=== PATIENT | male | born 1975 | race Caucasian/White ===

== ENCOUNTER 2021-09-15 19:41 | Emergency (ER) | payer SELFPAY ==
[2021-09-15 19:42] VITALS: BP 143/99; PULSE 64; RESP 18; TEMP 36.7; O2SAT 99; BMI 22.3
--- NOTE | 2021-09-15 23:15 | EDS_ITS ---
HPI History of Present Illness Chief Complaint: Dental Narrative Narrative: 44-year-old male with poor dentition and a cracked tooth which has been a problem for weeks. He states that he has been on antibiotics but has not been able to get a dental follow-up because he does not have the money. He states he is awaiting his insurance and also awaiting his tax refund to pay for his dental repair. No difficulty swallowing or breathing. No fever chills. PFSH PFSH Medical History no medical history Home Medications amoxicillin-pot clavulanate 1 tab PO BID #20 tab 09/15/21 [Rx Last Taken Unknown] Allergy/AdvReac Type Severity Reaction Status Date / Time No Known Allergies Allergy Verified 09/15/21 19:44 Surgical History no surgical history Social History Smoking Status: Current every day smoker tobacco type: cigarettes ROS ROS ED Constitutional Constitutional ED: Denies chills or fever(s) Eyes Eyes: Denies blurry vision or change in vision ENT ENT ED: Denies rhinorrhea or sore throat Cardiovascular Cardiovascular: Denies chest pain or palpitations Respiratory/Chest Respiratory/Chest: Denies cough or dyspnea Gastrointestinal Gastrointestinal: Denies abdominal pain or nausea Genitourinary Genitourinary ED: Denies dysuria or hematuria Musculoskeletal Musculoskeletal: Denies arthralgias or myalgias Integumentary Denies rash Neurologic Neurologic: Denies headache(s) or weakness EXAM Physical Exam Const Vital Signs: 09/15/21 19:42 Temperature 98.1 F Temperature Source Temporal Pulse Rate 64 Respiratory Rate 18 Blood Pressure 143/99 H Blood Pressure Mean 113 Pulse Ox 99 Oxygen Delivery Method Room Air Positive well nourished General Appearance ED: NAD HEENT HEENT Narrative: Partially edentulous. Multiple dental caries. Dental percussion tenderness over tooth #27. This is cracked and decayed. No sublingual edema. No tongue swelling. Buccal mucosa normal. Oral airway patent without stridor. No submandibular fullness. Negative for trauma or tenderness Eyes PERRL Neck no lymphadenopathy and supple General: Negative for anterior neck swelling or submandibular swelling Resp normal respiratory effort and clear to auscultation bilaterally Cardio regular rate and regular rhythm Neuro oriented x3 and CN's II-XII intact bilaterally Sensorium / Orientation: alert Psych mental status grossly normal MDM MDM MDM Narrative Medical decision making narrative: Patient presenting with dental pain. He states he has Tylenol and Naprosyn at home. He requests narcotic pain medication and I counseled him that this is becoming a chronic issue and he is not following up and I do not feel comfortable prescribing narcotics for this. He needs to follow-up with a dentist. I will give him Augmentin. Patient is a lso driving tonight. Patient is given dental referral sheet and he is counseled on return cautions. Impression: 1. Dental caries 2. Dental infection Discharge Plan Triage Chief Complaint: Dental ED Provider: Laron Esposito Dx/Rx/DC Orders Instructions: ED Dental Pain Prescriptions: New amoxicillin-pot clavulanate 875-125 mg tablet 1 tab PO BID Qty: 20 RF: 0 Primary Care Provider: Care Physician,No Primary Referrals: Care Physician,No Primary [Primary Care Provider] - Disposition Disposition: Home, Self Care Discharge Date/Time: 09/15/21 21:46
== END 2021-09-15 21:46 | disposition home or self-care (01) ==
PROVIDERS: Emergency Provider Student in an Organized Health Care Education/Training Program; Visit Provider Student in an Organized Health Care Education/Training Program
DX: K04.7 Periapical abscess without sinus (principal); K02.9 Dental caries, unspecified; F17.210 Nicotine dependence, cigarettes, uncomplicated
CPT/HCPCS: 99282

== ENCOUNTER 2025-03-22 23:23 | Emergency (ER) | payer MEDICAID, SELFPAY ==
[2025-03-22 23:27] VITALS: BP 140/102; PULSE 113; RESP 18; TEMP 36.6; O2SAT 97; BMI 20.2
--- OUTSIDE RECORDS SUMMARY | 2025-03-23 00:13 | XMS RPT_ITS | CCD ---
Author Organization [facility] Care Team Providers Care Hospice Bereavement Coordinator Name Role Phone PHYSICIAN, NONE Primary Care Physician Unavailab le Medications Current Medications Medication Drug Class(es) Dates Sig (Normalized) Sig (Original) acetaminophen 325 mg / oxyCODONE hydrochloride 5 mg oral tablet (1 source) Opioid Agonist Start: 08-26-2021 End: 08-28-2021 take 1 tablet by mouth every four hours as needed for pain Percocet 5 mg-325 mg oral tablet Dose = 1 tab(s), Oral, q4h, PRN for pain, X 2 day(s), # 12 tab(s), 0 Refill(s), Tooth decayed Dental infection, 77 Start Date: 08/26/21 Stop Date: 08/28/21 Status: Ordered amoxicillin 500 mg oral capsule (2 sources) Penicillin-class Antibacterial Start: 09-14-2021 End: 09-24-2021 amoxicillin 500 mg oral capsule Dose : 500 mg = 1 cap(s), PO, TID, X 10 day(s), # 30 cap(s), 0 Refill(s), 09/24/21 12:24:00 EDT, Dental caries Start Date: 09/14/21 Stop Date: 09/24/21 Status: Ordered amoxicillin 875 mg / clavulanate 125 mg oral tablet (2 sources) Penicillin-class Antibacterial Start: 09-15-2021 take 1 tablet by mouth twice daily Amoxicillin-Pot Clavulanate Active 1 TABLET PO TWICE A DAY September 15, 2021 9:39pm Start: 08-26-2021 End: 09-05-2021 take 1 tablet by mouth every twelve hours amoxicillin-clavulanate 875 mg-125 mg or al tablet 1 tab(s), Oral, q12h, X 10 day(s), # 20 tab(s), 0 Refill(s), 09/05/21 17:34:00 EST, Tooth decayed Dental infection, 77 Start Date: 08/26/21 Stop Date: 09/05/21 Status: Ordered Problems Problem Classification Problem Date Documented Da te Episodic/Chronic Disorders of teeth and jaw (4 sources) Dental caries; Translations: [Dental caries, unspecified] Onset: 08-26-2021 Episodic Results Test Name Value Interpretation Reference Range Facil ity Emergency Department Summary on 09-16-2021 Emergency Department Summary [facility] Medical Records Department [address] [place] [address] Emergency Department Summary 09/15/21 MR#: [id number] Acct: [id number] Name: DEREK SCHREIBER Rep #: [id number] : 1975 45 From: Laron Esposito DO PCP: Care Physician,No Primary Status:DEP ER Location: ED HPI History of Present Illness Chief Complaint: Dental Narrative Narrative: 44-year-old male with poor dentition and a cracked tooth which has been a problem for weeks. He states that he has been on antibiotics but has not been able to get a dental follow-up because he does not have the money. He states he is awaiting his insurance and also awaiting his tax refund to pay for his dental repair. No difficulty swallowing or breathing. No fever chills. PFSH PFSH Medical History no medical history Home Medications amoxicillin-pot clavulanate 1 tab PO BID #20 tab 09/15/21 [Rx Last Taken Unknown] Allergy/AdvReac Type Severity Reaction Status Date / Time No Known Allergies Allergy Verified 09/15/21 19:44 Surgical History no surgical history Social History Smoking Status: Current every day smoker tobacco type: cigarettes ROS ROS ED Constitutional Constitutional ED: Denies chills or fever(s) Eyes Eyes: Denies blurry vision or change in vision ENT ENT ED: Denies rhinorrhea or sore throat Cardiovascular Cardiovascular: Denies chest pain or palpitations Respiratory/Chest Respiratory/Chest: Denies cough or dyspnea Gastrointestinal Gastrointestinal: Denies abdominal pain or nausea Genitourinary Genitourinary ED: Denies dysuria or hematuria Musculoskeletal Musculoskeletal: Denies arthralgias or myalgias Integumentary Denies rash Neurologic Neurologic: Denies headache(s) or weakness EXAM Physical Exam Const Vital Signs: 09/15/21 19:42 Temperature 98.1 F Temperature Source Temporal Pulse Rate 64 Respiratory Rate 18 Blood Pressure 143/99 H Blood Pressure Mean 113 Pulse Ox 99 Oxygen Delivery Method Room Air Positive well nourished General Appearance ED: NAD HEHARINDER HEENT Narrative: Partially edentulous. Multiple dental caries. Dental percussion tenderness over tooth #27. This is cracked and decayed. No sublingual edema. No tongue swelling. Buccal mucosa normal. Oral airway patent without stridor. No submandibular fullness. Negative for trauma or tenderness Eyes PERRL Neck no lymphadenopathy and supple General: Negative for anterior neck swelling or submandibular swelling Resp normal respiratory effort and clear to auscultation bilaterally Cardio regular rate and regular rhythm Neuro oriented x3 and CN's II-XII intact bilaterally Sensorium / Orientation: alert Psych mental status grossly normal MDM MDM MDM Narrative Medical decision making narrative: Patient presenting with dental pain. He states he has Tylenol and Naprosyn at home. He requests narcotic pain medication and I counseled him that this is becoming a chronic issue and he is not following up and I do not feel comfortable prescribing narcotics for this. He needs to follow-up with a dentist. I will give him Augmentin. Patient is a lso driving tonight. Patient is given dental referral sheet and he is counseled on return cautions. Impression: 1. Dental caries 2. Dental infection Discharge Plan Triage Chief Complaint: Dental ED Provider: Laron Esposito Dx/Rx/DC Orders Instructions: ED Dental Pain Prescriptions: New amoxicillin-pot clavulanate 875-125 mg tablet 1 tab PO BID Qty: 20 RF: 0 Primary Care Provider: Care Physician,No Primary Referrals: Care Physician,No Primary [Primary Care Provider] - Disposition Disposition: Home, Self Care Discharge Date/Time: 09/15/21 21:46 What to do if you have Problems For any increased pain, shortness of breath, bleeding, nausea or vomiting, chest pain, or any unexpected problems, contact your Primary Care Provider. Call [facility] ([phone]) or report to the closest Emergency Room. Call 911 if necessary. 09/15/21 3188 Cosigner Signature (if applicable): CC: No Primary Care Physician Signed Normal [facility] Vital Signs Date Time Vital Sign Value Performing Clinician Facility 09-15-2021 19:42-0400 Body height 180.34 cm [facility] Work Phone: 09-15-2021 19:42-0400 Body mass index (BMI) [Ratio] 22.3 kg/m2 [facility] Work Phone: 09-15-2021 19:42-0400 Body temperature 98.1 [degF] [facility] Work Phone: 09-15-2021 19:42-0400 Body weight 72.57 kg [facility] Work Phone: 09-15-2021 19:42-0400 Diastolic blood pressure 99 mm[Hg] [facility] Work Phone: 09-15-2021 19:42-0400 Heart rate 64 /min [facility] Work Phone: 09-15-2021 19:42-0400 Respiratory rate 18 /min [facility] Work Phone: 09-15-2021 19:42-0400 SaO2% (BldA) [Mass fraction] 99 % [facility] Work Phone: 09-15-2021 19:42-0400 Systolic blood pressure 143 mm[Hg] [facility] Work Phone: 09-15-2021 10:51-0400 Body height 180.3 cm LOUISA CALLWOAY MD [facility] 09-15-2021 10:51-0400 Body temperature 98.24 [degF] LOUISA CALLOWAY MD [facility] 09-15-2021 10:51-0400 Body weight 72.7 kg LOUISA CALLOWAY MD [facility] 09-15-2021 10:51-0400 Diastolic blood pressure 82 mm[Hg] LOUISA CALLOWAY MD [facility] 09-15-2021 10:51-0400 Heart rate 79 /min LOUISA CALLOWAY MD [facility] 09-15-2021 10:51-0400 Respiratory rate 24 /min LOUISA CALLOWAY MD [facility] 09-15-2021 10:51-0400 Systolic blood pressure 135 mm[Hg] LOUISA CALLOWAY MD [facility] 09-14-2021 11:47-0400 Body temperature 97.52 [degF] DR QUINTON ALANIS MD [facility] 09-14-2021 11:47-0400 Diastolic blood pressure 96 mm[Hg] DR QUINTON ALANIS MD [facility] 09-14-2021 11:47-0400 Heart rate 72 /min DR QUINTON ALANIS MD [facility] 09-14-2021 11:47-0400 Respiratory rate 16 /min DR QUINTON ALANIS MD [facility] 09-14-2021 11:47-0400 Systolic blood pressure 141 mm[Hg] DR QUINTON ALANIS MD [facility] 08-26-2021 17:22-0500 Body height 180.3 cm CAMMIE SAL DO [facility] 08-26-2021 17:22-0500 Body temperature 97.34 [degF] CAMMIE SAL DO [facility] 08-26-2021 17:22-0500 Body weight 75 kg CAMMIE SAL DO [facility] 08-26-2021 17:22-0500 Diastolic blood pressure 98 mm[Hg] CAMMIE SAL DO [facility] 08-26-2021 17:22-0500 Heart rate 75 /min CAMMIE SAL DO [facility] 08-26-2021 17:22-0500 Respiratory rate 16 /min CAMMIE SAL DO [facility] 08-26-2021 17:22-0500 Systolic blood pressure 158 mm[Hg] CAMMIE SAL DO [facility] Encounters Encounter Date Encounter Type Care Provider Facility Start: 09-15-2021 End: 09-15-2021 Emergency department patient visit [facility] Start: 09-15-2021 End: 09-15-2021 Emergency department patient visit LOUISA CALLOWAY MD [facility] Start: 09-14-2021 End: 09-14-2021 Emergency department patient visit DR QUINTON ALANIS MD [facility] Start: 08-26-2021 End: 08-26-2021 Emergency department patient visit CAMMIE SAL DO [facility] Plan of Treatment Date Care Activity Detail Author Patient Education ED Dental Pain [facility] Work Phone: Patient referral [facility] Work Phone: Payers Date Payer Category Payer Policy ID Self-pay SELF PAY INSURANCE [id number] Social History Date Type Detail Facility [facility] Start: 1975 Sex Assigned At Male [facility] Tobacco Nicotine Use: denies. [facility] Start: 09-15-2021 Tobacco smoking stat [facility] Unknown if ever smoked [facility] Work Phone: Hospital Discharge instructions 09-15-2021 Note Date & Type Note Facility 09-15-2021 Hospital Discharg e instructions Patient Education 09/15/2021 10:55:33 Dental Pain Dental Pain A crack or cavity in a tooth can cause tooth pain. This is because the crack or cavity exposes the sensitive inner area of the tooth. An infection in the gum or the root of the tooth can cause pain and swelling. The pain is often made worse when you drink hot or cold beverages. It can also be worse when you bite on hard foods. Pain may spread from the tooth to your ear or the area of the jaw on the same side. Home care Follow these tips when caring for yourself at home: Don't have hot and cold foods and drinks. Your tooth may be sensitive to changes in temperature. Use toothpaste made for sensitive teeth. Rising Fawn gently up and down instead of sideways. Brushing sideways can wear away root surfaces if they are exposed. If your tooth is chipped or cracked, or if there is a large open cavity, put oil of cloves directly on the tooth to relieve pain. You can buy oil of cloves at drugstores. Some pharmacies carry an ropy-qwc-yepcpyp toothache kit. This contains a paste that you can put on the exposed tooth to make it less sensitive. Put a cold pack on your jaw over the sore area to help reduce pain. You may use zpbb-enn-kdhzuue medicine to ease pain, unless your doctor prescribed another medicine. If you have chronic liver or kidney disease, talk with your healthcare provider before using acetaminophen or ibuprofen. Also talk with your provider if you ve had a stomach ulcer or GI bleeding. If you have signs of an infection, you will be given an antibiotic. Take it as directed. Follow-up care Follow up with your dentist, or as advised. Your pain may go away with the treatment given today. But only a dentist can fully look at and treat the cause of your pain. This will keep the pain from coming back. Call 911 Call 911 if any of these occur: Unusual drowsiness Headache or stiff neck Weakness or fainting Difficulty swallowing or breathing When to seek medical advice Call your health care provider right away if any of these occur: Your face becomes swollen or red Pain gets worse or spreads to your neck Fever of 100.4 F (38.0 C) or higher, or as directed by your healthcare provider Pus drains from the tooth [id number] [employer] [address] [place] [address]. All rights reserved. This information is not intended as a substitute for professional medical care. Always follow your healthcare professional's instructions. Follow Up Care 09/15/2021 10:43:31 With:Follow up with primary care provider Address:Unknown When:2-4 days [facility] Hospital Discharge instructions 09-14-2021 Note Date & Type Note Facility 09-14-2021 Hospital Discharg e instructions Follow Up Care 09/14/2021 11:39:01 With:Dental List Address: When:2-4 days [facility] Hospital Discharge instructions 08-26-2021 Note Date & Type Note Facility 08-26-2021 Hospital Discharg e instructions Patient Education 08/26/2021 17:35:07 Treating Sensitive Teeth Treating Sensitive Teeth See your dentist if you have sensitive, painful teeth. Your dentist will examine your teeth to determine the cause of your tooth sensitivity. Then he or she will recommend a proper treatment plan. Your dental exam Your dentist will check your teeth for sensitivity to cold, air, or heat. Let him or her know if you have foods or drinks that are high in acid, such as citrus fruits or sports drinks. Also tell your dentist about any stomach problems you may have that bring acid into your mouth. Your dentist will also look inside your mouth to check for decayed teeth, or teeth worn by improper brushing. If needed, X-rays will be taken. You may also be checked for signs of teeth grinding, or clenching. You may start out with a special oral hygiene program for home care. But your dentist may also suggest professional treatment. Home care Your dentist may suggest that you follow an oral hygiene program at home. Use a toothbrush with soft bristles. If any roots are exposed, you may be asked to use a special toothpaste. This toothpaste makes teeth less sensitive. Your dentist may also suggest that you try a fluoride rinse or gel, or a desensitizing toothpaste. Cleaning all parts of your teeth and mouth helps prevent tooth sensitivity and decay. Professional treatment Depending on how sensitive your teeth are, your dentist may suggest professional treatment. He or she may: Apply special chemicals to the sensitive areas. Use a coating of resin to seal the dentin. Fill cavities or deep grooves in any exposed root. Apply a fluoride varnish to the root surface. Know that your teeth can become sensitive again. Be sure to follow your home-care treatment plan. Also schedule regular dental exams. By working with your dentist, you can help keep your teeth pain-free. [id number] [employer] [address] [place] [address], [place] [address]. All rights reserved. This information is not intended as a substitute for professional medical care. Always follow your healthcare professional's instructions. 08/26/2021 17:35:01 Amoxicillin; Clavulanic Acid extended-release tablets Amoxicillin; Clavulanic Acid extended-release tablets What is this medicine? AMOXICILLIN; CLAVULANIC ACID (a mox i SILL in; GRETCHEN guajardo marielle ic id) is a penicillin antibiotic. It is used to treat certain kinds of bacterial infections. It will not work for colds, flu, or other viral infections. How should I use this medicine? Take this medicine by mouth with a full glass of water. Follow the directions on the prescription label. Take at the start of a meal. Do not crush or chew. You may cut this medicine in half at the score line for easier swallowing. Take your medicine at regular intervals. Do not take your medicine more often than directed. Take all of your medicine as directed even if you think you are better. Do not skip doses or stop your medicine early. Contact your licensed clinical psychologist or health residential care officer regarding the use of this medicine in children. This medicine has been used in children as young as 16 years of age. What side effects may I notice from receiving this medicine? Side effects that you should report to your doctor or health residential care officer as soon as possible: allergic reactions like skin rash, itching or hives, swelling of the face, lips, or tongue breathing problems dark urine fever or chills, sore throat redness, blistering, peeling or loosening of the skin, including inside the mouth seizures trouble passing urine or change in the amount of urine unusual bleeding, bruising unusually weak or tired white patches or sores in the mouth or throat Side effects that usually do not require medical attention (report to your doctor or health residential care officer if they continue or are bothersome): diarrhea dizziness headache nausea, vomiting stomach upset vaginal or anal irritation What may interact with this medicine? allopurinol anticoagulants control pills methotrexate probenecid What if I miss a dose? If you miss a dose, take it as soon as you can. If it is almost time for your next dose, take only that dose. Do not take double or extra doses. Where should I keep my medicine? Keep out of the reach of children. Store at room temperature below 25 degrees C (77 degrees F). Keep container tightly closed. Throw away any unused medicine after the expiration date. What should I tell my health care provider before I take this medicine? They need to know if you have any of these conditions: bowel disease, like colitis kidney disease liver disease mononucleosis an unusual or allergic reaction to amoxicillin, penicillin, cephalosporin, other antibiotics, clavulanic acid, other medicines, foods, dyes, or preservatives or trying to get breast-feeding What should I watch for while using this medicine? Tell your doctor or health residential care officer if your symptoms do not improve. Do not treat diarrhea with over the counter products. Contact your doctor if you have diarrhea that lasts more than 2 days or if it is severe and watery. If you have diabetes, you may get a false-positive result for sugar in your urine. Check with your doctor or health residential care officer. control pills may not work properly while you are taking this medicine. Talk to your doctor about using an extra method of control. NOTE:This sheet is a summary. It may not cover all possible information. If you have questions about this medicine, talk to your doctor, pharmacist, or health care provider. Copyright 2019 [employer] 08/26/2021 17:34:42 Dental Pain Dental Pain A crack or cavity in a tooth can cause tooth pain. This is because the crack or cavity exposes the sensitive inner area of the tooth. An infection in the gum or the root of the tooth can cause pain and swelling. The pain is often made worse when you drink hot or cold beverages. It can also be worse when you bite on hard foods. Pain may spread from the tooth to your ear or the area of the jaw on the same side. Home care Follow these tips when caring for yourself at home: Don't have hot and cold foods and drinks. Your tooth may be sensitive to changes in temperature. Use toothpaste made for sensitive teeth. Rising Fawn gently up and down instead of sideways. Brushing sideways can wear away root surfaces if they are exposed. If your tooth is chipped or cracked, or if there is a large open cavity, put oil of cloves directly on the tooth to relieve pain. You can buy oil of cloves at drugstores. Some pharmacies carry an mxdk-qcn-wmhissm toothache kit. This contains a paste that you can put on the exposed tooth to make it less sensitive. Put a cold pack on your jaw over the sore area to help reduce pain. You may use skio-suo-icbzweh medicine to ease pain, unless your doctor prescribed another medicine. If you have chronic liver or kidney disease, talk with your healthcare provider before using acetaminophen or ibuprofen. Also talk with your provider if you ve had a stomach ulcer or GI bleeding. If you have signs of an infection, you will be given an antibiotic. Take it as directed. Follow-up care Follow up with your dentist, or as advised. Your pain may go away with the treatment given today. But only a dentist can fully look at and treat the cause of your pain. This will keep the pain from coming back. Call 911 Call 911 if any of these occur: Unusual drowsiness Headache or stiff neck Weakness or fainting Difficulty swallowing or breathing When to seek medical advice Call your health care provider right away if any of these occur: Your face becomes swollen or red Pain gets worse or spreads to your neck Fever of 100.4 F (38.0 C) or higher, or as directed by your healthcare provider Pus drains from the tooth [id number] [employer] [address] [place] [address]. All rights reserved. This information is not intended as a substitute for professional medical care. Always follow your healthcare professional's instructions. 08/26/2021 17:34:40 Dental Cavity Dental Cavity A dental cavity is a pit or crater in the surface of a tooth. This exposes the sensitive inner layer of the tooth and causes pain. If the cavity isn t treated, it will get bigger. It may enter the pulp and cause an infection or abscess in the bone at the root end (apex) of the tooth. An infection in the tooth is a much more serious problem than a cavity. If the tooth gets infected, you will need a root canal or the entire tooth taken out (extraction). The pain in your tooth may be made worse by eating sweets or drinking hot or cold beverages. It may spread from the tooth to your ear or the area of your jaw on the same side. Home care Follow these tips when caring for yourself at home: Don't have sweets and hot and cold foods and drinks. Your tooth may be sensitive to changes in temperature. If your tooth is chipped or cracked, or if there is a large open cavity, put oil of cloves directly on the tooth to relieve pain. You can buy oil of cloves at drugstores. Some pharmacies carry an rlwy-wni-qbxaskx toothache kit. This contains a paste that you can put on the exposed tooth to make it less sensitive. Put a cold pack on your jaw over the sore area to help reduce pain. You may use posg-ekh-kopefgn medicine to ease pain, unless another medicine was prescribed. If you have chronic liver or kidney disease, talk with your healthcare provider before using acetaminophen or ibuprofen. Also talk with your provider if you ve had a stomach ulcer or GI bleeding. If you have signs of an infection, you will be given an antibiotic. Take it as directed. Follow-up care Follow up with your dentist, or as advised. Your pain may go away with the treatment given today. But only a dentist can fully look at and treat this problem to prevent further tooth damage. Call 911 Call 911 if any of these occur: Difficulty swallowing or breathing Weakness or fainting Unusual drowsiness Headache or stiff neck When to seek medical advice Call your healthcare provider right away if any of these occur: Redness or swelling of the face Pain gets worse or spreads to your neck Fever of 100.4 F (38 C) or higher, or as directed by your healthcare provider Pus drains from the tooth or gum [phone] [employer] [address] [place] [address]. All rights reserved. This information is not intended as a substitute for professional medical care. Always follow your healthcare professional's instructions. Follow Up Care 08/26/2021 17:19:17 With:Call Physician Referral Address:Unknown When:2-4 days With:Dental Referral List Address: When:2-4 days [facility] Evaluation + Plan note Note Date & Type Note Facility Evaluation + Plan note No data available for this section [facility] Center Evaluation note Note Date & Type Note Facility Evaluation note No assessment information availa [facility] Work Phone: Chief Complaint and Reason for Visit Chief Complaint TOOTH PAIN Advance Directives No Advanced Directives Records Found Advance Directive Response Recorded Date/ Time Living Will No September 15, 2021 9:45pm Power of Hospice Bereavement Coordinator No September 15 9:45pm Summary Purpose Family History No Family History Records Found Additional Source Comments Goals (unrecognized section and content) Goals may be documented in a n alternate section (unrecognized sect ion and content) No Status Records Found INFORMATION SOURCE (unrecogn ized section and content) DATE CREATED AUTHOR 10/31/2021 [facility] FOR RECORDS PERTAINING TO PATIENTS WHO ARE OR HAVE BEEN ENROLLED IN A CHEMICAL DEPENDENCY/SUBSTANCEABUSE PROGRAM, SOME INFORMATION MAY BE OMITTED. This clinical summary was aggregated from multiple sources. Caution should be exercised in using it in the provision of clinical care. This summary normalizes information from multiple sources, and as a consequence, information in this document may materially change the coding, format and clinical context of patient data. In addition, data may be omitted in some cases. CLINICAL DECISIONS SHOULD BE BASED ON THE PRIMARY CLINICAL RECORDS. [employer] [facility]. provides no warranty or guarantee of the accuracy or completeness of information in this document.
[2025-03-23 00:26] VITALS: BP 136/94; PULSE 82; RESP 18; O2SAT 98
[2025-03-23 01:00] LABS: Hematocrit 41.7 % (40-54); Hemoglobin 14.3 g/dL (13.0-16.5); Immature Granulocytes Count 0.030 X10^3/uL (0.0-0.0); Mean Corp Hgb Conc 34.3 g/dL (32-36); Mean Corpuscular Volume 89.1 fL (80-94); Mean Platelet Vol. 10.4 fl (6.2-12.0); NRBC Flagged by Analyzer 0 % (0-5); Platelet Count 282 K/mm3 (150-450); RBC Distribution Width CV 12.9 % (11.6-14.6); RBC Distribution Width SD 41.9 fl (35.1-43.9); Red Blood Count 4.68 M/mm3 (4.6-6.2); White Blood Count 9.1 K/mm3 (4.4-11.0)
[2025-03-23 01:27] LABS: Alcohol, Blood (Medical)-Serum 132.0 mg/dL (<=10.0); Anion Gap 15 (5-15); BUN 9 mg/dL (4-19); BUN/Creat Ratio 13.8 RATIO (10-20); Calcium,Total 8.7 mg/dL (7.6-11.0); Carbon Dioxide 16.8 mmol/L (21.0-32.0); Chloride 108 mmol/L (98-108); Estimated Creatinine Clearance 128.72 ml/min (50-250); Glucose 108 mg/dL (70-99); Potassium 3.9 mmol/L (3.3-5.1)
[2025-03-23 01:29] LABS: Barbiturate Urine NEGATIVE (< 200 ng/mL); Benzodiazepine Urine NEGATIVE (< 200 ng/mL); PCP Urine NEGATIVE (< 25 ng/mL); THC Urine PRESUMPTIVE POSITIVE (< 50 ng/mL)
[2025-03-23 02:00] VITALS: PULSE 98; RESP 18; O2SAT 97
[2025-03-23 03:00] VITALS: BP 106/75; PULSE 63; RESP 16; O2SAT 100
[2025-03-23 03:50] LABS: Alcohol, Blood (Medical)-Serum 57.6 mg/dL (<=10.0)
--- NOTE | 2025-03-23 07:04 | EDS_ITS ---
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 Police report that they were called to the patient's residence because a family were called for help feeling that Michael was acting abnormally. Please report that they were informed he had an abrupt change in his behavior and family was unsure if it was drug or mental health related. According to the police he began screaming at them and stated that he was the second coming of [employer] and the creator of the [place] [employer]. He also balled up his fists and began yelling indicating there was potential for violence. He also told the police that he believes he is being watched. Based on these abnormal behaviors he was brought to the hospital for further evaluation [facility] Medical History no medical history no medical history Home Medications ?Medication ?Instructions ?Recorded ?Last Taken ?Type NK 03/22/25 Unknown History Allergy/AdvReac Type Severity Reaction Status Date / Time No Known Allergies Allergy Verified 03/22/25 23:27 Family History no significant family his Surgical History no surgical history Social History Smoking Status: Current every day smoker tobacco type: cigarettes ROS ROS ED Constitutional Constitutional ED: Denies chills or fever(s) Eyes Eyes: Denies change in vision ENT ENT ED: Denies sore throat Cardiovascular Cardiovascular: Denies chest pain Respiratory/Chest Respiratory/Chest: Denies cough or dyspnea Gastrointestinal Gastrointestinal: Denies abdominal pain, diarrhea, nausea or vomiting Musculoskeletal Musculoskeletal: Denies myalgias Integumentary Denies rash Neurologic Neurologic: Denies headache(s) Psychiatric Psychiatric: Denies suicidal ideation or suicidal thoughts EXAM Physical Exam Const Vital Signs: 03/22/25 23:27 03/23/25 00:26 03/23/25 02:00 Temperature 97.9 F Temperature Source Temporal Pulse Rate 113 H 82 98 Respiratory Rate 18 18 18 Blood Pressure 140/102 H 136/94 H Blood Pressure Mean 114 108 Pulse Ox 97 98 97 Oxygen Delivery Method Room Air Room Air Room Air 03/23/25 03:00 Temperature Temperature Source Pulse Rate 63 Respiratory Rate 16 Blood Pressure 106/75 Blood Pressure Mean 85 Pulse Ox 100 Oxygen Delivery Method Room Air Positive well nourished and well developed General Appearance ED: well developed HEENT HEENT Narrative: Normocephalic atraumatic Eyes PERRL and EOMs intact bilaterally General Eye ED: Negative for scleral icterus Neck supple Neck Narrative: No nuchal rigidity or meningeal signs Resp normal respiratory effort and clear to auscultation bilaterally Cardio regular rate and regular rhythm GI normal to inspection, nondistended, normoactive bowel sounds, non-tender, non-d istended and no masses Auscultation: normoactive bowel sounds Palpation: soft Extremity normal to inspection Neuro oriented x3, CN's II-XII intact bilaterally and no sensory deficits noted Sensorium / Orientation: alert Motor Exam: strength 5/5 throughout Psych Psych Narrative: Patient denies any homicidal or suicidal ideation He does admit to visual hallucinations and also states that he is being watched He denies any previous psychiatric placement Skin no rashes or lesions noted MDM MDM MDM Narrative Medical decision making narrative: Patient arrived to the ER mildly hypertensive but was agitated upon arrival. According to the police there is concern for mental health disorder as patient reports he is the second coming of [employer] and the creator of the [employer] and believes he is being watched 18/01. When I addressed these issues with the patient he did agree to them but became very irritated and angry over my questioning. He did fall his hands into fists similar to his reaction to the police questioning. However there was no other acting out or threats of violence. He does admit to drinking alcohol this evening but denies any illicit drug use. At this time with family reporting an abrupt change in his mental status the fact that he believes he is being watched and also that he is the creator of the universe this thinking it is not rational and would indicate underlying mental health disorder. He does appear that he is caring for himself but as the symptoms are reportedly new according to family I do feel he would benefit from mental health evaluation and potential placement. Therefore basic screening labs were obtained. Labs revealed no clinically significant findings other than an elevated alcohol level consistent with his report of drinking this evening. He was watched in the ER until his alcohol value was below 100. He had no further bouts of acting out or aggression and did not require any type of chemical or physical restraint. He was evaluated by crisis center and repeated similar ideations to them such as being the creator of the universe and being watched and visual hallucinations. Therefore they feel his safest mode of treatment is inpatient treatment at this time. The patient was informed of this and there was no aggressive outburst. At this time the patient is medically cleared for transfer placement to a psychiatric center. History & Record Review Discussion w/independent historian: EMS personnel, Patient and Other (Police) Lab Data Attestation: I reviewed the patient's lab results. Labs: Laboratory Results - last 24 hr 03/22/25 03/23/25 23:48 03:22 WBC 9.1 RBC 4.68 Hgb 14.3 Hct 41.7 MCV 89.1 MCH 30.6 MCHC 34.3 RDW Std Deviation 41.9 RDW Coeff of [place] 12.9 Plt Count 282 MPV 10.4 Immature Gran % (Auto) 0.300 Neut % (Auto) 52.8 Lymph % (Auto) 36.8 [place] % (Auto) 7.9 Eos % (Auto) 1.5 Baso % (Auto) 0.7 Absolute Neuts (auto) 4.8 Absolute Lymphs (auto) 3.33 Nucleated RBC % 0 Sodium 140 Potassium 3.9 Chloride 108 Carbon Dioxide 16.8 L Anion Gap 15 BUN 9 Creatinine 0.66 L Estim Creat Clear Calc 128.72 Est GFR (MDRD) Non-Af 116 BUN/Creatinine Ratio 13.8 Glucose 108 H Calcium 8.7 Urine Opiates Screen NEGATIVE U Buprenorphine Qual NEGATIVE Ur Oxycodone Screen NEGATIVE Urine Methadone Screen NEGATIVE Urine Fentanyl Screen NEGATIVE Ur Barbiturates Screen NEGATIVE Ur Phencyclidine Scrn NEGATIVE Ur Amphetamines Screen NEGATIVE U Benzodiazepines Scrn NEGATIVE Urine Cocaine Screen NEGATIVE U Cannabinoids Screen PRESUMPTIVE POSITIVE Ethyl Alcohol 132.0 H 57.6 H Management Discussion w/another healthcare provider: Behavioral health Discharge Plan Triage Chief Complaint: Mental Health ED Provider: Tommy Dodge Dx/Rx/DC Orders Clinical Impression: Paranoia, Visual hallucinations, Delusional disorder Prescriptions: No Action NK Primary Care Provider: Care Physician,No Primary Referrals: Care Physician,No Primary [Primary Care Provider, Medical] Print Language: Mongolian Disposition Disposition: Psychiatric Hospital or Unit
[2025-03-23 11:44] VITALS: BP 133/93; PULSE 65; RESP 16; O2SAT 100
[2025-03-23 13:46] VITALS: BP 133/93; PULSE 65; RESP 16; TEMP 36.8; O2SAT 100
--- NOTE | 2025-03-23 14:35 | ED.RN ---
attempted to call report two times with no answer. phone rang for 4 minutes. unable to leave a message.
== END 2025-03-23 15:46 ==
PROVIDERS: Emergency Provider Emergency Medicine; Visit Provider Emergency Medicine
DX: R44.1 Visual hallucinations (principal); F17.210 Nicotine dependence, cigarettes, uncomplicated; R45.1 Restlessness and agitation
CPT/HCPCS: 36415; 80048; 80307; 82077; 85025; 99285

== ENCOUNTER 2025-06-01 19:27 | Emergency (ER) | payer MEDICAID, SELFPAY ==
[2025-06-01 19:29] VITALS: BP 111/70; PULSE 68; RESP 16; TEMP 36.5; O2SAT 100; BMI 19.7
--- OUTSIDE RECORDS SUMMARY | 2025-06-01 20:04 | XMS RPT_ITS | CCD ---
Author Organization [facility] Care Team Providers Care Engineering Professor Name Role Phone PHYSICIAN, NONE Primary Care Physician Unavailab Tommy Yuan Attending Unavailable Care Physician, No Primary Primary Care Unava ilable Care Physician, No Primary Primary Care Physicia n Unavailable Dr. Tommy Dodge DO Attending Physician Dr. Tommy Dodge DO Emergency Department Physic jos éluis Medications Current Medications Medication Drug Class(es) Dates [...] mg / clavulanate 125 mg oral tablet (3 sources) Penicillin-class Antibacterial Start: 09-15-2021 take 1 tablet by mouth twice daily Amoxicillin-Pot Clavulanate Active 1 TABLET PO TWICE A DAY September 15, 2021 9:39pm Start: 09-15-2021 End: 03-22-2025 Amoxicillin-Pot Clavulanate 875-125 mg tablet Discontinued 1 {tbl} PO TWICE A DAY 20 0 September 15, 2021 12:00am March 22, 2025 11:47pm Start: 08-26-2021 End: 09-05-2021 take 1 tablet by mouth every twelve hours amoxicillin-clavulanate 875 mg-125 mg oral tablet 1 tab(s), Oral, q12h, X 10 day(s), # 20 tab(s), 0 Refill(s), 09/05/21 17:34:00 EST, Tooth decayed Dental infection, 77 Start Date: 08/26/21 Stop Date: 09/05/21 Status: Ordered [place] (Nk) (1 source) Start: 03-22-2025 [place] (Nk) A ctive March 22, 2025 12:00am Problems Problem Classification Problem Date Documented Da te Episodic/Chronic Blindness and vision defects (1 source) Visual hallucinations; Translations: [Visual hallucinations] 03-23-2025 Episodic Disorders of teeth and jaw (4 sources) Dental caries; Translations: [Dental caries, unspecified] Onset: 08-26-2021 Episodic Miscellaneous mental health disorders (1 source) Mental disorder, not otherwise specified; Translations: [Mental disorder, not otherwise specified] Onset: 03-26-2025 Chronic Schizophrenia and other psychotic disorders (2 sources) Delusional disorder; Translations: [Delusional disorders] 03-23-2025 Chronic Results Test Name Value Interpretation Reference Range Facility Alcohol, Blood (Medical)-[facility] [place] 03-23-2025 SERUM ETOH 57.6 mg/dL High <=10.0 [facility] Comment on above: Result Comment: This test is for medical purposes only. The legal definition of intoxication varies according to local law. Performed By: #### L 501.9100 #### [facility] [address] [place], [place], [id number] SERUM ETOH 132.0 mg/dL High <=10.0 [facility] Comment on above: Result Comment: This test is for medical purposes only. The legal definition of intoxication varies according to local law. Performed By: #### L 100.0100, L501.9100, L505.5000, L500.2500 #### [facility] [address] [place], [address] Basic Metabolic Profile (BMP )on 03-23-2025 BUN/CRE 13.8 RATIO Normal 10-20 [facility] Comment on above: Performed By: #### L 100.0100, L501.9100, L505.5000, L500.2500 #### [facility] [address] [place], [address] Calcium [Mass/Vol] 8.7 mg/dL Normal 7.6-11.0 [facility] Comment on above: Performed By: #### L 100.0100, L501.9100, L505.5000, L500.2500 #### [facility] [address] [place], [address] Chloride [Moles/Vol] 108 mmol/L Normal 98-108 [facility] Comment on above: Performed By: #### L 100.0100, L501.9100, L505.5000, L500.2500 #### [facility] [address] [place], [address] CO2 [Moles/Vol] 16.8 mmol/L Low 21.0-32.0 [facility] Comment on above: Performed By: #### L 100.0100, L501.9100, L505.5000, L500.2500 #### [facility] [address] [place], [address] Creatinine [Mass/Vol] 0.66 mg/dL Low 0.70-1.20 [facility] Comment on above: Performed By: #### L 100.0100, L501.9100, L505.5000, L500.2500 #### [facility] [address] [place], [address] ECRCL 128.72 ml/min Normal 50-250 [facility] Comment on above: Performed By: #### L 100.0100, L501.9100, L505.5000, L500.2500 #### [facility] [address] [place], [address] GAP 15 Normal 5-15 [facility] Comment on above: Performed By: #### L 100.0100, L501.9100, L505.5000, L500.2500 #### [facility] [address] [place], [address] GFR/1.73 sq M.predicted among non-blacks MDRD (S/P/Bld) [Vol rate/Area] 116 mL/min/{1.73_m2} Normal >60 [facility] Comment on above: Result Comment: mL/m in/1.73m2 CKD-EPI Creatinine Equation (2020) Performed By: #### L 100.0100, L501.9100, L505.5000, L500.2500 #### [facility] [address] [place], [address] Glucose [Mass/Vol] 108 mg/dL High 70-99 [facility] Comment on above: Performed By: #### L 100.0100, L501.9100, L505.5000, L500.2500 #### [facility] [address] [place], [address] Potassium [Moles/Vol] 3.9 mmol/L Normal 3.3-5.1 [facility] Comment on above: Performed By: #### L 100.0100, L501.9100, L505.5000, L500.2500 #### [facility] [address] [place], [address] Sodium [Moles/Vol] 140 mmol/L Normal 133-145 [facility] Comment on above: Performed By: #### L 100.0100, L501.9100, L505.5000, L500.2500 #### [facility] [address] [place], [address] Urea nitrogen [Mass/Vol] 9 mg/dL Normal 4-19 [facility] Comment on above: Performed By: #### L 100.0100, L501.9100, L505.5000, L500.2500 #### [facility] [address] [place], [address] CBC W/Diff, Automatedon 02-27 Absolute Lymph 3.33 X10 3/uL Normal 0.83-4.51 [facility] Comment on above: Performed By: #### L 100.0100, L501.9100, L505.5000, L500.2500 #### [facility] [address] [place], [address] Absolute Neut 4.8 X10 3/uL Normal 2.0-7.7 [facility] Comment on above: Performed By: #### L 100.0100, L501.9100, L505.5000, L500.2500 #### [facility] [address] [place], [address] IG% 0.300 Normal 0.0-0.9 [facility] Comment on above: Result Comment: IG% - Immature Granulocytes (promyelocytes, myelocytes and metamyelocytes) > 1% indicates that a LEFT SHIFT is Present. Performed By: #### L 100.0100, L501.9100, L505.5000, L500.2500 #### [facility] [address] [place], [address] Lymphocytes/100 WBC (Bld) 36.8 % Normal 19-41 [facility] Comment on above: Performed By: #### L 100.0100, L501.9100, L505.5000, L500.2500 #### [facility] [address] [place], [address] Nucleated RBC (Bld) [#/Vol] 0 10*3/uL Normal 0-5 [facility] Comment on above: Performed By: #### L 100.0100, L501.9100, L505.5000, L500.2500 #### [facility] [address] [place], [address] RDW SD 41.9 fl Normal 35.1-43.9 [facility] Comment on above: Performed By: #### L 100.0100, L501.9100, L505.5000, L500.2500 #### [facility] [address] [place], [address] Emergency Department Summary on 03-23-2025 Emergency Department Summary [facility] Department [address] [place] [address] Emergency Department Summary 03/23/25 MR#: [id number] Acct: [id number] Name: MICHAEL SCHREIBER . 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 Police report that they were called to the patient's residence because a family were called for help feeling that Michael was acting abnormally. Please report that they were informed he had an abrupt change in his behavior and family was unsure if it was drug or mental health related. According to the police he began screaming at them and stated that he was the second coming of [employer] and the creator of the [employer]. He also balled up his fists and began yelling indicating there was potential for violence. He also told the police that he believes he is being watched. Based on these abnormal behaviors he was brought to the hospital for further evaluation [facility] Medical History no medical history no medical history Home Medications ???Medication ???Instructions ???Recorded ???Last Taken ???Type NK 03/22/25 Unknown History Allergy/AdvReac Type Severity Reaction Status Date / Time No Known Allergies Allergy Verified 03/22/25 23:27 Family History no significant family his Surgical History no surgical history Social History Smoking Status: Current every day smoker tobacco type: cigarettes ROS ROS ED Constitutional Constitutional ED: Denies chills or fever(s) Eyes Eyes: Denies change in vision ENT ENT ED: Denies sore throat Cardiovascular Cardiovascular: Denies chest pain Respiratory/Chest Respiratory/Chest: Denies cough or dyspnea Gastrointestinal Gastrointestinal: Denies abdominal pain, diarrhea, nausea or vomiting Musculoskeletal Musculoskeletal: Denies myalgias Integumentary Denies rash Neurologic Neurologic: Denies headache(s) Psychiatric Psychiatric: Denies suicidal ideation or suicidal thoughts EXAM Physical Exam Const Vital Signs: 03/22/25 23:27 03/23/25 00:26 03/23/25 02:00 Temperature 97.9 F Temperature Source Temporal Pulse Rate 113 H 82 98 Respiratory Rate 18 18 18 Blood Pressure 140/102 H 136/94 H Blood Pressure Mean 114 108 Pulse Ox 97 98 97 Oxygen Delivery Method Room Air Room Air Room Air 03/23/25 03:00 Temperature Temperature Source Pulse Rate 63 Respiratory Rate 16 Blood Pressure 106/75 Blood Pressure Mean 85 Pulse Ox 100 Oxygen Delivery Method Room Air Positive well nourished and well developed General Appearance ED: well developed HEENT HEENT Narrative: Normocephalic atraumatic Eyes PERRL and EOMs intact bilaterally General Eye ED: Negative for scleral icterus Neck supple Neck Narrative: No nuchal rigidity or meningeal signs Resp normal respiratory effort and clear to auscultation bilaterally Cardio regular rate and regular rhythm GI normal to inspection, nondistended, normoactive bowel sounds, non-tender, non-distended and no masses Auscultation: normoactive bowel sounds Palpation: soft Extremity normal to inspection Neuro oriented x3, CN's II-XII intact bilaterally and no sensory deficits noted Sensorium / Orientation: alert Motor Exam: strength 5/5 throughout Psych Psych Narrative: Patient denies any homicidal or suicidal ideation He does admit to visual hallucinations and also states that he is being watched He denies any previous psychiatric placement Skin no rashes or lesions noted MDM MDM MDM Narrative Medical decision making narrative: Patient arrived to the ER mildly hypertensive but was agitated upon arrival. According to the police there is concern for mental health disorder as patient reports he is the second coming of [employer] and the creator of the universe and believes he is being watched 18/01. When I addressed these issues with the patient he did agree to them but became very irritated and angry over my questioning. He did fall his hands into fists similar to his reaction to the police questioning. However there was no other acting out or threats of violence. He does admit to drinking alcohol this evening but denies any illicit drug use. At this time with family reporting an abrupt change in his mental status the fact that he believes he is being watched and also that he is the creator of the universe this thinking it is not rational and would indicate underlying mental health disorder. He does appear th (more content not included)... Normal [facility] Serum or plasma ethanol rolando urement (mass/volume)Ordered By: Tommy Dodge on 03-23-2025 Ethanol [Mass/Vol] 57.6 mg/dL High <10.1 [facility] Comment on above: This test is for med ical purposes only. The legal definition of intoxication varies according to local law. Urine Drug Screen (VISTA)on 03-23-2025 AMPHETAMINES Negative Normal <1000 ng/mL [facility] Comment on above: Performed By: #### L 100.0100, L501.9100, L505.5000, L500.2500 #### [facility] [address] [facility] [place], [address] BARBITIURATES Negative Normal < 200 ng/mL [facility] Comment on above: Performed By: #### L 100.0100, L501.9100, L505.5000, L500.2500 #### [facility] [address] [place], [address] BENZODIAZIPINE Negative Normal < 200 ng/mL [facility] Comment on above: Performed By: #### L 100.0100, L501.9100, L505.5000, L500.2500 #### [facility] [address] [place], [address] BUP Ur Drug Scr Negative Normal < 200 ng/mL [facility] Comment on above: Performed By: #### L 100.0100, L501.9100, L505.5000, L500.2500 #### [facility] [address] [place], [address] COCAINE Negative Normal < 300 ng/mL [facility] Comment on above: Performed By: #### L 100.0100, L501.9100, L505.5000, L500.2500 #### [facility] [address] [place], [address] Fentanyl Negative Normal <5 ng/mL [facility] Comment on above: Result Comment: CONF IRMATORY TESTING FOR ALL POSITIVE URINE DRUG SCREEN RESULTS WILL ONLY BE SENT OUT UPON PHYSICIAN ORDER. Deysi Pro Urine Drug Screen methods provide only preliminary analytical test results. A more specific alternate chemical method must be used in order to obtain a confirmed analytical result. Gas chromatography/mass spectrometery (GC/MS) is the preferred confirmatory method. Clinical consideration and professional judgement should be applied to any drug of abuse test result, particularly when preliminary positive results are used. Urine TCA testing must be ordered separately. Use test mnemonic: UTCA Performed By: #### L 100.0100, L501.9100, L505.5000, L500.2500 #### [facility] [address] [place], [address] METHADONE Negative Normal < 300 ng/mL [facility] Comment on above: Performed By: #### L 100.0100, L501.9100, L505.5000, L500.2500 #### [facility] [address] [place], [address] OPIATES Negative Normal < 300 ng/mL [facility] Comment on above: Performed By: #### L 100.0100, L501.9100, L505.5000, L500.2500 #### [facility] [address] [place], [address] OXYCODONE Negative Normal < 100 ng/mL [facility] Comment on above: Performed By: #### L 100.0100, L501.9100, L505.5000, L500.2500 #### [facility] [address] [place], [place], [address] PCP Negative Normal < 25 ng/mL [facility] Comment on above: Performed By: #### L 100.0100, L501.9100, L505.5000, L500.2500 #### [facility] [address] [place], [address] THC Positive Normal < 50 ng/mL [facility] Comment on above: Result Comment: If c onfirmation testing is needed, a separate order will be required to send out testing to the reference laboratory. Performed By: #### L 100.0100, L501.9100, L505.5000, L500.2500 #### [facility] [address] [place], [place], [id number] Absolute lymphocyte countOrd ered By: Tommy Dodge on 03-22-2025 Lymphocytes Auto (Unsp spec) [#/Vol] 3.33 10*3/uL 0.83-4.51 [facility] Absolute neutrophil countOrd ered By: Tommy Dodge on 03-22-2025 Neutrophils (Bld) [#/Vol] 4.8 10*3/uL 2.0-7.7 [facility] Amphetamine detection with 1 000 ng/mL as cutoffOrdered By: Tommy Dodge on 03-22-2025 Amphetamines Screen method >1000 ng/mL Ql (U) Negative < 200 ng/mL [facility] Anion gap in Serum or Plasma Ordered By: Tommy Dodge on 03-22-2025 Anion gap [Moles/Vol] 15 mmol/L 5-15 [facility] Automated lymphocyte count a s percentage of total leukocytesOrdered By: Tommy Dodge on 03-22-2025 Lymphocytes/100 WBC Auto (Unsp spec) 36.8 % - [facility] BUN/creatinine ratioOrdered By: Tommy Dodge on 03-22-2025 Urea nitrogen/Creatinine [Mass ratio] 13.8 mg/mg 10- [facility] CBC W/Diff, AutomatedOrdered By: Tommy Dodge on 03-22-2025 Basophils/100 WBC (Bld) 0.7 % Normal 0-1 [facility] Comment on above: Performed By: #### L 100.0100, L501.9100, L505.5000, L500.2500 #### [facility] [address] [place], [address] Eosinophils/100 WBC (Bld) 1.5 % Normal 0-5 [facility] Comment on above: Performed By: #### L 100.0100, L501.9100, L505.5000, L500.2500 #### [facility] [address] [place], [address] Erythrocyte distribution width (RBC) [Ratio] 12.9 % Normal 11.6-14.6 [facility] Comment on above: Performed By: #### L 100.0100, L501.9100, L505.5000, L500.2500 #### [facility] [address] [place], [address] Hematocrit (Bld) [Volume fraction] 41.7 % Normal 40-54 [facility] Comment on above: Performed By: #### L 100.0100, L501.9100, L505.5000, L500.2500 #### [facility] [address] [place], [address] Hemoglobin (Bld) [Mass/Vol] 14.3 g/dL Normal 13.0-16.5 [facility] Comment on above: Performed By: #### L 100.0100, L501.9100, L505.5000, L500.2500 #### [facility] [address] [place], [address] MCH (RBC) [Entitic mass] 30.6 pg Normal 27.0-32.0 [facility] Comment on above: Performed By: #### L 100.0100, L501.9100, L505.5000, L500.2500 #### [facility] [address] [place], [address] MCHC (RBC) [Mass/Vol] 34.3 g/dL Normal 32-36 [facility] Comment on above: Performed By: #### L 100.0100, L501.9100, L505.5000, L500.2500 #### [facility] [address] [place], [address] MCV (RBC) [Entitic vol] 89.1 fL Normal 80-94 [facility] Comment on above: Performed By: #### L 100.0100, L501.9100, L505.5000, L500.2500 #### [facility] [address] [place], [address] Monocytes/100 WBC (Bld) 7.9 % Normal 0-10 [facility] Comment on above: Performed By: #### L 100.0100, L501.9100, L505.5000, L500.2500 #### [facility] [address] [place], [address] Neutrophils/100 WBC (Bld) 52.8 % Normal 47-70 [facility] Comment on above: Performed By: #### L 100.0100, L501.9100, L505.5000, L500.2500 #### [facility] [address] [place], [address] Platelet mean volume (Bld) [Entitic vol] 10.4 fL Normal 6.2-12.0 [facility] Comment on above: Performed By: #### L 100.0100, L501.9100, L505.5000, L500.2500 #### [facility] [address] [place], [address] Platelets (Bld) [#/Vol] 282 10*3/uL Normal 150-450 [facility] Comment on above: Performed By: #### L 100.0100, L501.9100, L505.5000, L500.2500 #### [facility] [address] [place], [address] RBC (Bld) [#/Vol] 4.68 10*6/uL Normal 4.6-6.2 [facility] Comment on above: Performed By: #### L 100.0100, L501.9100, L505.5000, L500.2500 #### [facility] [address] [place], [address] WBC (Bld) [#/Vol] 9.1 10*3/uL Normal 4.4-11.0 [facility] Comment on above: Performed By: #### L 100.0100, L501.9100, L505.5000, L500.2500 #### [facility] [address] [place], [address] Carbon dioxide, total [Moles /volume] in Central venous bloodOrdered By: Tommy Dodge on 03-22-2025 CO2 [Moles/Vol] 16.8 mmol/L Low 21.0-32.0 [facility] Chloride assayOrdered By: Kyleigh Dodge on 03-22-2025 Chloride [Moles/Vol] 108 mmol/L 98-108 [facility] Erythrocyte distribution wid th standard deviationOrdered By: Tommy Dodge on 03-22-2025 Erythrocyte distribution width (RBC) [Ratio] 41.9 fl 35.1-43.9 [facility] Glomerular filtration rate ( GFR) estimation/1.73 sq m using serum, plasma, or whole bOrdered By: Tommy Dodge on 03-22-2025 GFR/1.73 sq M.predicted among non-blacks MDRD (S/P/Bld) [Vol rate/Area] 116 mL/min/{1.73_m2} >60 [facility] Comment on above: mL/min/1.73m2 CKD-EP I Creatinine Equation (2020) Immature granulocytes/100 WB C Auto (Bld)Ordered By: Tommy Dodge on 03-22-2025 Immature granulocytes/100 WBC (Bld) 0.300 % 0.0-0.9 [facility] Comment on above: IG% - Immature Granu locytes (promyelocytes, myelocytes and metamyelocytes) > 1% indicates that a LEFT SHIFT is Present. No Panel InformationOrdered By: Tommy Dodge on 03-22-2025 Urine Buprenorphine Qualitative Negative < 200 ng/mL [facility] Urine Oxycodone Screen Negative < 100 ng/mL [facility] Nucleated red blood cell per centageOrdered By: Tommy Dodge on 03-22-2025 Nucleated RBC/100 WBC (Bld) [Ratio] 0 % 0-5 [facility] Potassium measurement (mass/ volume)Ordered By: Tommy Dodge on 03-22-2025 Potassium (Unsp spec) [Mass/Vol] 3.9 mmol/L 3.3-5.1 [facility] Quantitative urine opiates m easurementOrdered By: Tommy Dodge on 03-22-2025 Opiates Ql (U) Negative < 300 ng/mL [facility] Screening urine fentanyl hector surementOrdered By: Tommy Dodge on 03-22-2025 fentaNYL Screen Ql (U) Negative <5 ng/mL [facility] Comment on above: CONFIRMATORY TESTING FOR ALL POSITIVE URINE DRUG SCREENRESULTS WILL ONLY BE SENT OUT UPON PHYSICIAN ORDER. Deysi Pro Urine Drug Screen methods provide only preliminaryanalytical test results. A more specific alternate chemicalmethod must be used in order to obtain a confirmedanalytical result. Gas chromatography/mass spectrometery(GC/MS) is the preferred confirmatory method. Clinicalconsideration and professional judgement should be appliedto any drug of abuse test result, particularly whenpreliminary positive results are used. Urine TCA testing must be ordered separately. Use test mnemonic: UTCA Serum creatinine measurement (mass/volume)Ordered By: Tommy Dodge on 03-22-2025 Creatinine [Mass/Vol] 0.66 mg/dL Low 0.70-1.20 [facility] Serum glucose measurement (m ass/volume)Ordered By: Tommy Dodge on 03-22-2025 Glucose [Mass/Vol] 108 mg/dL High 70-99 [facility] Serum or plasma calcium rolando urement (mass/volume)Ordered By: Tommy Dodge on 03-22-2025 Calcium [Mass/Vol] 8.7 mg/dL 7.6-11.0 [facility] Serum or plasma urea nitroge n measurement (mass/volume)Ordered By: Tommy Dodge on 03-22-2025 Urea nitrogen [Mass/Vol] 9 mg/dL 4-19 [facility] Sodium levelOrdered By: Elias Dodge on 03-22-2025 Sodium [Moles/Vol] 140 mmol/L 133-145 [facility] Urine benzodiazepine levelOr dered By: Tommy Dodge on 03-22-2025 Benzodiazepines Ql (U) Negative < 200 ng/mL [facility] Urine cocaine levelOrdered B y: Tommy Dodge on 03-22-2025 Cocaine Ql (U) Negative < 300 ng/mL [facility] Urine lsrxt-[id number] abinol (THC) measurementOrdered By: Tommy Dodge on 03-22-2025 Cannabinoids Screen Ql (U) Positive < 50 ng/mL [facility] Comment on above: If confirmation test ing is needed, a separate order will be required to send out testing to the reference laboratory. Urine phencyclidine (PCP) de tectionOrdered By: Tommy Dodge on 03-22-2025 Phencyclidine Ql (U) Negative < 25 ng/mL [facility] Vital Signs Date Time Vital Sign Value Performing Clinician Facility 03-23-2025 13:46-0400 Body temperature 98.2 [degF] No Primary Care Physician [facility] 03-23-2025 13:46-0400 Diastolic blood pressure 93 mm[Hg] No Primary Care Physician [facility] 03-23-2025 13:46-0400 Heart rate 65 /min No [facility] [facility] 03-23-2025 13:46-0400 Respiratory rate 16 /min No Primary Care Physician [facility] 03-23-2025 13:46-0400 SaO2% (BldA) [Mass fraction] 100 % No Primary Care Physician [facility] 03-23-2025 13:46-0400 Systolic blood pressure 133 mm[Hg] No Primary Care Physician [facility] 03-22-2025 23:27-0400 Body height 180.34 cm No Primary Care Physician [facility] 03-22-2025 23:27-0400 Body mass index (BMI) [Ratio] 20.2 kg/m2 No Primary Care Physician [facility] 03-22-2025 23:27-0400 Body weight 65.77 kg No Primary Care Physician [facility] 09-15-2021 19:42-0400 Body height 180.[address] [facility] Work Phone: 09-15-2021 19:42-0400 Body mass index (BMI) [Ratio] 22.3 kg/m2 [facility] Work Phone: 09-15-2021 19:42-0400 Body temperature 98.1 [degF] [facility] Work Phone: 09-15-2021 19:42-0400 Body weight 72.[address] [facility] Work Phone: 09-15-2021 19:42-0400 Diastolic blood pressure 99 mm[Hg] [facility] Work Phone: 09-15-2021 19:42-0400 Heart rate 64 /min [facility] Work Phone: 09-15-2021 19:42-0400 Respiratory rate 18 /min [facility] Work Phone: 09-15-2021 19:42-0400 SaO2% (BldA) [Mass fraction] 99 % [facility] Work Phone: 09-15-2021 19:42-0400 Systolic blood pressure 143 mm[Hg] [facility] Work Phone: 09-15-2021 10:51-0400 Body height 180.3 cm LOUISA CALLOWAY MD [facility] 09-15-2021 10:51-0400 Body temperature 98.24 [degF] LOUISA CALLOWAY MD [facility] 09-15-2021 10:51-0400 Body weight 72.7 kg LOUISA CALLOWAY MD [facility] 09-15-2021 10:51-0400 Diastolic blood pressure 82 mm[Hg] LOUISA CALLOWAY MD [facility] 09-15-2021 10:51-0400 Heart rate 79 /min LOUISA CALLOWAY MD [facility] 09-15-2021 10:51-0400 Respiratory rate 24 /min LOUISA CALLOWAY MD [facility] 09-15-2021 10:51-0400 Systolic blood pressure 135 mm[Hg] LOUISA CALLOWAY MD [facility] 09-14-2021 11:47-0400 Body temperature 97.52 [degF] DR QUINTON ALANIS MD [facility] 09-14-2021 11:47-0400 Diastolic blood pressure 96 mm[Hg] DR QUINTON ALANIS MD [facility] 09-14-2021 11:47-0400 Heart rate 72 /min DR QUINTON ALANIS MD [facility] 09-14-2021 11:47-0400 Respiratory rate 16 /min DR QUINTON ALANIS MD [facility] 09-14-2021 11:47-0400 Systolic blood pressure 141 mm[Hg] DR QUINTON ALANIS MD [facility] 08-26-2021 17:22-0500 Body height 180.3 cm CAMMIE SAL DO [facility] 08-26-2021 17:22-0500 Body temperature 97.34 [degF] CAMMIE SAL DO [facility] 08-26-2021 17:22-0500 Body weight 75 kg CAMMIE SAL DO [facility] 08-26-2021 17:22-0500 Diastolic blood pressure 98 mm[Hg] CAMMIE SAL DO [facility] 08-26-2021 17:22-0500 Heart rate 75 /min CAMMIE SAL DO [facility] 08-26-2021 17:22-0500 Respiratory rate 16 /min CAMMIE SAL DO [facility] 08-26-2021 17:22-0500 Systolic blood pressure 158 mm[Hg] CAMMIE SAL DO [facility] Encounters Encounter Date Encounter Type Care Provider Facility Start: 03-22-2025 End: 03-23-2025 Emergency department patient visit [facility] Facility:[facility] Start: 09-15-2021 End: 09-15-2021 Emergency department patient visit [facility] Start: 09-15-2021 End: 09-15-2021 Emergency department patient visit LOUISA CALLOWAY MD [facility] Start: 09-14-2021 End: 09-14-2021 Emergency department patient visit DR QUINTON ALANIS MD [facility] Start: 08-26-2021 End: 08-26-2021 Emergency department patient visit CAMMIE SAL DO [facility] Procedures Date Procedure Procedure Detail Performing Clinician Start: 03-22-2025 Estimated creatinine clearance No Primary Care Physician Start: 03-22-2025 Methadone measuremen t, urine No Primary Care Physician Plan of Treatment Date Care Activity Detail Author Start: 03-23-2025 [facility] Patient Education ED Dental Pain [facility] Work Phone: Patient referral [facility] Work Phone: Payers Date Payer Category Payer Self-pay [id number] 2025 Unknown [id number] 2025 Unknown [id number] Unknown [id number] Social History Date Type Detail Facility [facility] Start: 1975 Sex Assigned At Male A [facility] Tobacco Nicotine Use: denies. [facility] Start: 09-15-2021 Tobacco smoking stat [facility] Unknown if ever smoked [facility] Work Phone: Start: 03-22-2025 Tobacco smoking stat us SDIS Smokes tobacco daily (finding) [facility] Sex Male [facility] Discharge summary 03-23-2025 Note Date & Type Note Facility 03-23-2025 Discharge summary Note Date/Time March 23, 2025 7:26am [facility] Records Department [address] [place] [address] Emergency Department Summary 03/23/25 MR#: [id number] Acct: [id number] Name: MICHAEL SCHREIBER Jr. 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 Police report that they were called to the patient's residence because a family were called for help feeling that Michael was acting abnormally. Please report that they were informed he had an abrupt change in his behavior and family was unsureif it was drug or mental health related. According to the police he began screaming at them and stated that he was the second coming of [employer] and the creator of the universe. He also balled up his fists and began yelling indicating there was potential for violence. He also told the police that he believes he is being watched. Based on these abnormal behaviors he was brought to the hospital for further evaluation [facility] Medical History no medical history no medical history Home Medications ?Medication ?Instructions ?Recorded ?Last Taken ?Type NK 03/22/25 Unknown History Allergy/AdvReac Type Severity Reaction Status Date / Time No Known Allergies Allergy Verified 03/22/25 23:27 Family History no significant family his Surgical History no surgical history Social History Smoking Status: Current every day smoker tobacco type: cigarettes ROS ROS ED Constitutional Constitutional ED: Denies chills or fever(s) Eyes Eyes: Denies change in vision ENT ENT ED: Denies sore throat Cardiovascular Cardiovascular: Denies chest pain Respiratory/Chest Respiratory/Chest: Denies cough or dyspnea Gastrointestinal Gastrointestinal: Denies abdominal pain, diarrhea, nausea or vomiting Musculoskeletal Musculoskeletal: Denies myalgias Integumentary Denies rash Neurologic Neurologic: Denies headache(s) Psychiatric Psychiatric: Denies suicidal ideation or suicidal thoughts EXAM Physical Exam Const Vital Signs: 03/22/25 23:27 03/23/25 00:26 03/23/25 02:00 Temperature 97.9 F Temperature Source Temporal Pulse Rate 113 H 82 98 Respiratory Rate 18 18 18 Blood Pressure 140/102 H 136/94 H Blood Pressure Mean 114 108 Pulse Ox 97 98 97 Oxygen Delivery Method Room Air Room Air Room Air 03/23/25 03:00 Temperature Temperature Source Pulse Rate 63 Respiratory Rate 16 Blood Pressure 106/75 Blood Pressure Mean 85 Pulse Ox 100 Oxygen Delivery Method Room Air Positive well nourished and well developed General Appearance ED: well developed HEENT HEENT Narrative: Normocephalic atraumatic Eyes PERRL and EOMs intact bilaterally General Eye ED: Negative for scleral icterus Neck supple Neck Narrative: No nuchal rigidity or meningeal signs Resp normal respiratory effort and clear to auscultation bilaterally Cardio regular rate and regular rhythm GI normal to inspection, nondistended, normoactive bowel sounds, non-tender, non-distended and no masses Auscultation: normoactive bowel sounds Palpation: soft Extremity normal to inspection Neuro oriented x3, CN's II-XII intact bilaterally and no sensory deficits noted Sensorium / Orientation: alert Motor Exam: strength 5/5 throughout Psych Psych Narrative: Patient denies any homicidal or suicidal ideation He does admit to visual hallucinations and also states that he is being watched He denies any previous psychiatric placement Skin no rashes or lesions noted MDM MDM MDM Narrative Medical decision making narrative: Patient arrived to the ER mildly hypertensive but was agitated upon arrival. According to the police there is concern for mental health disorder as patient reports he is the second coming of [employer] and the creator of the universe and believes he is being watched 18/01. When I addressed these issues with the patient he did agree to them but became very irritated and angry over my questioning. He did fall his hands into fists similar to his reaction to the police questioning. However there was no other acting out or threats of violence. He does admit to drinking alcohol this evening but denies any illicitdrug use. At this time with family reporting an abrupt change in his mental status the fact that he believes he is being watched and also that he is the creator of the universe this thinking it is not rational and would indicate underlying mental health disorder. He does appear that he is caring for himselfbut as the symptoms are reportedly new according to family I do feel he would benefit from mental health evaluation and potential placement. Therefore basic screening labs were obtained. Labs revealed no clinically significant findings other than an elevated alcohol level consistent with his report of drinking thisevening. He was watched in the ER until his alcohol value was below 100. He had no further bouts of acting out or aggression and did not require any type ofchemical or physical restraint. He was evaluated by crisis center and repeated similar ideations to them such as being the creator of the universe and being watched and visual hallucinations. Therefore they feel his safest mode of treatment is inpatient treatment at this time. The patient was informed of thisand there was no aggressive outburst. At this time the patient is medically cleared for transfer placement to a psychiatric center. History & Record Review Discussion w/independent historian: EMS personnel, Patient and Other (Police) Lab Data Attestation: I reviewed the patient's lab results. Labs: Laboratory Results - last 24 hr 03/22/25 03/23/25 23:48 03:22 WBC 9.1 RBC 4.68 Hgb 14.3 Hct 41.7 MCV 89.1 MCH 30.6 MCHC 34.3 RDW Std Deviation 41.9 RDW Coeff of [place] 12.9 Plt Count 282 MPV 10.4 Immature Gran % (Auto) 0.300 Neut % (Auto) 52.8 Lymph % (Auto) 36.8 Lander % (Auto) 7.9 Eos % (Auto) 1.5 Baso % (Auto) 0.7 Absolute Neuts (auto) 4.8 Absolute Lymphs (auto) 3.33 Nucleated RBC % 0 Sodium 140 Potassium 3.9 Chloride 108 Carbon Dioxide 16.8 L Anion Gap 15 BUN 9 Creatinine 0.66 L Estim Creat Clear Calc 128.72 Est GFR (MDRD) Non-Af 116 BUN/Creatinine Ratio 13.8 Glucose 108 H Calcium 8.7 Urine Opiates Screen NEGATIVE U Buprenorphine Qual NEGATIVE Ur Oxycodone Screen NEGATIVE Urine Methadone Screen NEGATIVE Urine Fentanyl Screen NEGATIVE Ur Barbiturates Screen NEGATIVE Ur Phencyclidine Scrn NEGATIVE Ur Amphetamines Screen NEGATIVE U Benzodiazepines Scrn NEGATIVE Urine Cocaine Screen NEGATIVE U Cannabinoids Screen PRESUMPTIVE POSITIVE Ethyl Alcohol 132.0 H 57.6 H Management Discussion w/another healthcare provider: Behavioral health Discharge Plan Triage Chief Complaint: Mental Health ED Provider: Tommy Dodge Dx/Rx/DC Orders Clinical Impression: Paranoia, Visual hallucinations, Delusional disorder Prescriptions: No Action NK Primary Care Provider: Care Physician,No Primary Referrals: Care Physician,No Primary [Primary Care Provider, Medical] Print Language: Citizen Of [place] Disposition Disposition: Psychiatric Hospital or Unit What to do if you have Problems For any increased pain, shortness of breath, bleeding, nausea or vomiting, chestpain, or any unexpected problems, contact your Primary Care Provider. Call [facility] ([phone]) or report to the closest Emergency Room. Call 911 if necessary. 03/23/25725 <Electronically signed by Tommy Dodge DO> Cosigner Signature (if applicable): CC: No Primary Care Physician ~ Signed [facility] Work Phone: Discharge summary 03-23-2025 Note Date & Type Note Facility 03-23-2025 Discharge summary [facility] Discharge instructions 09-15-2021 Note Date & [...] temperature. Use toothpaste made for sensitive teeth. [place] gently up and down instead of sideways. Brushing sideways can wear away root surfaces if they are exposed. If your tooth is chipped or cracked, or if there is a large open cavity, put oil of cloves directly on the tooth to relieve pain. You can buy oil of cloves at drugstores. Some pharmacies carry an aprz-vav-tjbmnfd toothache kit. This contains a paste that you can put on the exposed tooth to make it less sensitive. Put a cold pack on your jaw over the sore area to help reduce pain. You may use hlbk-wci-srmattv medicine to ease pain, unless your doctor [...] healthcare provider Pus drains from the tooth [phone] [employer]. [address] [place] [address]. All rights reserved. This information is not intended as a substitute for professional medical care. Always follow your healthcare professional's instructions. Follow Up Care 09/15/2021 10:43:31 With:Follow up with primary care provider Address:Unknown When:2-4 days [facility] Hospital Discharge instructions 09-14-2021 Note Date & Type Note Facility 09-14-2021 Hospital Discharg e instructions Follow Up Care 09/14/2021 11:39:01 With:Dental List Address: When:2-4 days [facility] Hospital Discharge instructions 08-26-2021 Note Date & [...] you can help keep your teeth pain-free. [phone] [employer]. [address] [place] [address], [place] [address]. All rights reserved. This information is not intended as a substitute for professional medical care. Always follow your healthcare professional's instructions. 08/26/2021 17:35:01 Amoxicillin; Clavulanic Acid extended-release tablets Amoxicillin; Clavulanic Acid extended-release tablets What is this medicine? AMOXICILLIN; CLAVULANIC ACID (a mox i SILL in; GRETCHEN maldonado id) is a penicillin antibiotic. It is [...] or stop your medicine early. Contact your wharf tender or health wound care technician regarding the use of this medicine in children. This medicine has been used in children as young as 16 years of age. What side effects may I notice from receiving this medicine? Side effects that you should report to your doctor or health wound care technician as soon as possible: allergic reactions like [...] attention (report to your doctor or health wound care technician if they continue or are bothersome): diarrhea [...] this medicine? Tell your doctor or health wound care technician if your symptoms do not improve. Do not treat diarrhea with over the counter products. Contact your doctor if you have diarrhea that lasts more than 2 days or if it is severe and watery. If you have diabetes, you may get a false-positive result for sugar in your urine. Check with your doctor or health wound care technician. control pills may not work properly while you are taking this medicine. Talk to your doctor about using an extra method of control. NOTE:This sheet is a summary. It may not cover all possible information. If you have questions about this medicine, talk to your doctor, pharmacist, or health care provider. Copyright 2019 [employer] 08/26/2021 17:34:42 Dental Pain Dental Pain A [...] temperature. Use toothpaste made for sensitive teeth. Louisa gently up and down instead of sideways. Brushing sideways can wear away root surfaces if they are exposed. If your tooth is chipped or cracked, or if there is a large open cavity, put oil of cloves directly on the tooth to relieve pain. You can buy oil of cloves at [employer]. Some pharmacies carry an ehpv-yon-ykgsltk toothache kit. This contains a paste that you can put on the exposed tooth to make it less sensitive. Put a cold pack on your jaw over the sore area to help reduce pain. You may use lsle-abx-fpyypbt medicine to ease pain, unless your doctor [...] healthcare provider Pus drains from the tooth [phone] [employer]. [address] [place] [address], [place] [address]. All rights reserved. This information is not [...] cloves at drugstores. Some pharmacies carry an mldm-efx-boswcqn toothache kit. This contains a paste that you can put on the exposed tooth to make it less sensitive. Put a cold pack on your jaw over the sore area to help reduce pain. You may use vmcw-fmp-voqtsrq medicine to ease pain, unless another medicine [...] Pus drains from the tooth or gum [phone] [employer]. [address] [place] [address]. All rights reserved. This information is not intended as a substitute for professional medical care. Always follow your healthcare professional's instructions. Follow Up Care 08/26/2021 17:19:17 With:Call Physician Referral Address:Unknown When:2-4 days With:Dental Referral List Address: When:2-4 days [facility] Evaluation + Plan note Note Date & Type Note Facility Evaluation + Plan note No data available for this section [facility] Evaluation note Note Date & Type Note Facility Evaluation note No assessment information availa ble [facility] Work Phone: Reason for referral (narrative) Note Date & Type Note Facility Reason for referral (narrative) No reason for referral information available [facility] Work Phone: Chief Complaint and Reason for Visit Chief Complaint TOOTH PAIN Chief Complaint Admit Date mental health March 22, 2025 11:23pm Advance Directives Advance Directive Response Recorded Date/ Time Living Will No September 15, 2021 9:45pm Power of Protective Signal Installer No September 15 9:45pm Advance Directive Response Recorded Date/ Time Do you have a Healthcare Power of Protective Signal Installer? No March 22, 2025 11:39pm Summary Purpose Family History No Family History Records Found Additional Source Comments Goals (unrecognized section and content) Goals may be documented in a n alternate section (unrecognized sect ion and content) No Status Records Found INFORMATION SOURCE (unrecogn ized section and content) DATE CREATED AUTHOR 03/30/[address] [facility] Care Teams (unrecognized sec tion and content) Team Status: Active Member Role/Relationship Status Dates No Primary Care Physician Primary care physician Activ e Team Status: Inactive Member Role/Relationship Status Dates No Primary Care Physician Primary care physician Activ e Start: March 22, 2025 End: March 23, 2025 Dr. Tommy Dodge , DO Attending physician Active Start: March 22, 2025 End: March 23, 2025 Dr. Tommy Dodge , DO Emergency Departme nt Physician Active Start: March 22, 2025 End: March 23, 2025 FOR RECORDS PERTAINING TO PATIENTS WHO ARE [...] BE BASED ON THE PRIMARY CLINICAL RECORDS. [employer] [facility]. provides no warranty or guarantee of the accuracy or completeness of information in this document.
[2025-06-01] MEDS: Lidocaine 2% Jelly 1 APPLIC Tube 15 APPLIC TOPICAL (20:20)
--- NOTE | 2025-06-01 20:20 | EDS_ITS ---
HPI History of Present Illness Chief Complaint: Male Pain/Injury Informant: patient and EMS Narrative Narrative: 49-year-old male presenting to the emergency room with chief complaint of penile pain. Patient states a week ago he was utilizing a toy that he bought at the store. He states that he thought he was having a reaction to the rubber pieces of the toy and tonight noticed that there was an apparent hair wrapped around the base of the glans of the penis. He notes swelling and pain. Patient is screaming that he needs something for pain but states he has not been doing that over the past week that this has been ongoing. [facility] Medical History Anxiety Home Medications ?Medication ?Instructions ?Recorded ?Last Taken ?Type clonidine HCl 0.1 mg tablet PO 06/01/25 Unknown Histor y risperidone 75 mg/0.21 mL mg subcut 06/01/25 Unknown H istory subcutaneous extend release susp syringe (Uzedy) trazodone 50 mg tablet 50 mg PO QHS 06/01/25 Unknow n History Allergy/AdvReac Type Severity Reaction Status Date / Time No Known Allergies Allergy Verified 06/01/25 19:32 Social History Smoking Status: Current some day smoker tobacco type: cigarettes ROS ROS ED Constitutional Constitutional ED: Denies chills or weight loss Eyes Eyes: Denies change in vision or diplopia ENT ENT ED: Denies ear pain, rhinorrhea or sore throat Cardiovascular Cardiovascular: Denies chest pain, orthopnea, palpitations or racing heartbeat Respiratory/Chest Respiratory/Chest: Denies cough, dyspnea or orthopnea Gastrointestinal Gastrointestinal: Denies abdominal pain, diarrhea, nausea or vomiting Genitourinary Genitourinary ED: Reports other Details: Penile pain ; Denies dysuria, hematuria or urinary frequency Musculoskeletal Musculoskeletal: Denies arthralgias or myalgias Integumentary Denies abscess or rash Neurologic Neurologic: Denies headache(s) or weakness Psychiatric Psychiatric: Denies anxiety, depression, suicidal ideation or suicidal thoughts Endocrine Endocrinology: Denies polydipsia, polyphagia or polyuria Allergic/Immunologic Allergic/Immunologic ED: Denies mouth swelling, tongue swelling or urticaria EXAM Physical Exam Const Vital Signs: 06/01/25 19:29 Temperature 97.7 F L Temperature Source Oral Pulse Rate 68 Respiratory Rate 16 Blood Pressure 111/70 Blood Pressure Mean 83 Pulse Ox 100 Oxygen Delivery Method Room Air Positive well nourished and well developed General Appearance ED: well developed HEENT Reports normocephalic, head/scalp atraumatic and moist mucous membranes Eyes PERRL and EOMs intact bilaterally Neck no lymphadenopathy, supple and no JVD Resp normal respiratory effort and clear to auscultation bilaterally Cardio regular rate, regular rhythm and no murmurs GI normal to inspection, nondistended, normoactive bowel sounds and non-tender Palpation: soft Narrative: Genitalia exam performed in the presence of female nurse Elvia. The glans appears normal. At the base of the gland demonstrates what appears to be a hair tourniquet. There is some swelling of the foreskin without significant erythema. There is some serosanguineous dried drainage at this level. Is difficult to get a full examination as the patient is hitting my hands with his telling me to get away. Back/Spine no CVA tenderness and normal ROM Extremity normal to inspection General Extremety ED: Negative for edema General Extremity: Negative for edema Neuro oriented x3 and CN's II-XII intact bilaterally Sensorium / Orientation: alert Motor Exam: strength 5/5 throughout Psych mental status grossly normal Mood & Affect: Negative for depressed or tearful Skin no rashes or lesions noted and no wounds MDM MDM MDM Narrative Medical decision making narrative: Differential diagnosis includes but not limited to paraphimosis phimosis hair tourniquet cellulitis Jalyn's gangrene IV was established the patient received a dose of morphine and lidocaine jelly was applied liberally to the skin of the penis just below the glans. After 20 minutes I reexamined. I was able to locate a knot of the hair on the left side and lift up. Hair tourniquet was snipped and the hair successfully removed from around the glans. The tissue is now able to be fully visualized and is very friable. There is some mild bleeding on the right ventral surface. Patient will be started on Keflex. I will also have him use some bacitracin ointment. Would request urologic follow-up. I can write for some [employer]. History & Record Review Discussion w/independent historian: Patient Discharge Plan Triage Chief Complaint: Male Pain/Injury ED Provider: Randolph Henson Dx/Rx/DC Orders Clinical Impression: Hair tourniquet of penis, Cellulitis, penis, Pain in penis Prescriptions: No Action clonidine HCl 0.1 mg tablet PO trazodone 50 mg tablet 50 mg PO QHS Uzedy 75 mg/0.21 mL suspension,extended rel syring SUBCUT Patient Comments: [NO ORIGINAL SIG] Primary Care Provider: Care Physician,No Primary Referrals: Erick Leong MD [Med Staff - Active Staff, Urology] - 3-5 Days Care Physician,No Primary [Primary Care Provider, Medical] Print Language: Greek
[2025-06-01 21:13] VITALS: BP 103/68; PULSE 78; RESP 19; TEMP 36.7; O2SAT 99
== END 2025-06-01 21:25 | disposition home or self-care (01) ==
PROVIDERS: Emergency Provider Emergency Medicine; Visit Provider Emergency Medicine
DX: S30.842A External constriction of penis, initial encounter (principal); N48.89 Other specified disorders of penis; N48.22 Cellulitis of corpus cavernosum and penis; F41.9 Anxiety disorder, unspecified; Z79.899 Other long term (current) drug therapy; F17.210 Nicotine dependence, cigarettes, uncomplicated; W49.01XA Hair causing external constriction, initial encounter
CPT/HCPCS: 96374; 99285; A4216